=== PATIENT | male | born 1955 | race Caucasian/White ===

== ENCOUNTER 2017-06-22 18:59 | Inpatient (IN) | payer BC ==
[~2017-06-22] VITALS: Ht 172.7 cm; Wt 91.7 kg
[~2017-06-22 18:59] MED LIST: ASPIRIN 32325 MG/TAB PO; ATENOLOL; ATENOLOL50 MG PO; B-1100 MG PO; FOLIC ACID 11 MG/TA1 PO; FOLIC ACID0.4 MG PO; HCTZ12.5TAB PO; IRON TABLETS325 MG PO; LISINOPRIL/HCTZ1 TAB PO; LOVENOX 3030 MG/0.3 SQ; MOBIC15 MG PO; MULTI VITAMINS1 TAB PO; NIFEDICAL XL60 MG PO; PRINIVIL20 MG PO; PROTONIX 40MG T40 MG PO; TENORMIN 5050 MG/TAB PO; TENORMIN100 MG PO; UNABLE; VITAMIN C500 MG PO; ZANTAC 150MG T150 MG PO; ZESTRIL 10MG10 MG PO
[2017-06-22 19:57] LABS: BASO % 0.3 % (0.0-2.0); GRAN # 8.9 (1.4-6.5); GRAN % 77.8 % (42.2-75.2); HEMATOCRIT 46.3 % (42.0-52.0); HEMOGLOBIN 16.8 g/dl (13.5-18.0); LYMPH # 1.8 (1.2-3.4); LYMPH % 15.4 % (20.0-51.0); MEAN CELL VOLUME 95 fl (80.0-100.0); MEAN CORPUSCULAR HEMOGLOBIN 34 pg (27.0-31.0); MEAN CORPUSCULAR HGB CONC 36 g/dl (33.0-37.0); MEAN PLATELET VOLUME 8.6 fl (7.4-10.4); MONO # 0.7 (0.1-0.6); MONO % 6.1 % (1.7-9.3); PLATELET COUNT 180 K/mm3 (130-400); RED BLOOD COUNT 4.88 M/mm3 (4.20-5.60); WHITE BLOOD COUNT 11.5 K/mm3 (4.8-10.8)
[2017-06-22 20:55] LABS: BILIRUBIN,TOTAL 1.1 mg/dL (0.0-1.0); CALCIUM 8.8 mg/dL (8.4-10.2); CREATININE, serum 0.71 mg/dL (0.66-1.25); POTASSIUM 3.5 mmol/L (3.4-5.0); TOTAL PROTEIN 7.6 gm/dL (6.4-8.2)
[2017-06-22 21:11] LABS: PROLACTIN 80.9 ng/mL (3.7-17.9)
[2017-06-22 21:49] LABS: ARTERIAL BLD GAS O2 SATURATION 95.9 % (92-100); ARTERIAL BLD GAS TCO2 CT 17.3; ARTERIAL BLOOD GAS BASE EXCESS -6.9 (-2-2); ARTERIAL BLOOD GAS HCO3 16.5 meq/L (22-26); ARTERIAL BLOOD GAS PO2 92.4 mmHg (80-100); ARTERIAL BLOOD GAS pH 7.38 (7.35-7.45); OXYHEMOGLOBIN 94.6 %
[2017-06-22 21:51] LABS: ALLEN TEST YES; ALLENS TEST RESULT PASS; ATS? YES
[2017-06-22] MEDS ORDERED: PRINIVIL40 MG PO (23:43)
[2017-06-22] MEDS ORDERED: MICROZIDE12.5 MG PO (23:43)
[2017-06-22] MEDS ORDERED: NORVASC 10MG10 MG PO (23:44)
[2017-06-22] MEDS ORDERED: MOBIC15 MG PO (23:44)
[2017-06-23] VITALS (11 sets, daily range): BP systolic 103–121; BP diastolic 58–75; PULSE 59–117; TEMP 97.4–98.8
[2017-06-23 05:16] LABS: ARTERIAL BLD GAS O2 SATURATION 91.8 % (92-100); ARTERIAL BLD GAS TCO2 CT 20.1; ARTERIAL BLOOD GAS BASE EXCESS -3.1 (-2-2); ARTERIAL BLOOD GAS HCO3 19.2 meq/L (22-26); ARTERIAL BLOOD GAS PHT 7.46 C (7.35-7.45); ARTERIAL BLOOD GAS PO2 65.3 mmHg (80-100); ARTERIAL BLOOD GAS PO2T 65.3 (80-100); ARTERIAL BLOOD GAS pH 7.46 (7.35-7.45)
[2017-06-23 05:17] LABS: ALLEN TEST YES; ALLENS TEST RESULT PASS; ATS? YES
[2017-06-23] MEDS ORDERED: B COMPLEX & B121 TAB (06:33)
[2017-06-23 07:35] LABS: BASO % 0.1 % (0.0-2.0); GRAN # 8.2 (1.4-6.5); GRAN % 82.7 % (42.2-75.2); HEMATOCRIT 38.8 % (42.0-52.0); LYMPH # 1.1 (1.2-3.4); MEAN CELL VOLUME 97 fl (80.0-100.0); MEAN CORPUSCULAR HEMOGLOBIN 34 pg (27.0-31.0); MEAN CORPUSCULAR HGB CONC 35 g/dl (33.0-37.0); MEAN PLATELET VOLUME 8.9 fl (7.4-10.4); MONO # 0.6 (0.1-0.6); MONO % 5.6 % (1.7-9.3); PLATELET COUNT 155 K/mm3 (130-400); RED BLOOD COUNT 4.01 M/mm3 (4.20-5.60); WHITE BLOOD COUNT 9.9 K/mm3 (4.8-10.8)
[2017-06-23 07:46] LABS: ADJUSTED CALCIUM 7.8 mg/dL (8.4-10.2); BILIRUBIN,TOTAL 0.9 mg/dL (0.0-1.0); CALCIUM 7.8 mg/dL (8.4-10.2); CREATININE, serum 0.58 mg/dL (0.66-1.25); MAGNESIUM 1.8 mg/dL (1.6-2.3); POTASSIUM 3.1 mmol/L (3.4-5.0); TOTAL PROTEIN 6.4 gm/dL (6.4-8.2)
[2017-06-23 07:49] LABS: HEMOGLOBIN 13.7 g/dl (13.5-18.0)
[2017-06-23 07:54] LABS: PROTHROMBIN TIME 11.7 SECONDS (9.7-12.8)
[2017-06-23 08:09] LABS: PARTIAL THROMBOPLASTIN TIME 26.9 SECONDS (26.0-37.0)
[2017-06-23 13:07] LABS: AMPHETAMINE URINE NEGATIVE; BARBITURATES URINE NEGATIVE; BENZODIAZEPINES URINE NEGATIVE; BUPRENORPHINE URINE NEGATIVE; METHADONE URINE NEGATIVE; OPIATES URINE NEGATIVE; OXYCODONE URINE NEGATIVE; PHENCYCLIDINE URINE NEGATIVE; PROPOXYPHENE URINE NEGATIVE; THC CANNABINOIDS URINE NEGATIVE; TRICYCLIC ANTIDEPRESS URINE NEGATIVE
[2017-06-23 13:24] LABS: COLLECTION METHOD CLEAN CATCH
[2017-06-23 13:34] LABS: MUCOUS Present /lpf; PH 5 (5-8); SQUAMOUS EPITHELIAL None Seen /hpf; URINE APPEARANCE Clear; URINE BACTERIA None Seen /hpf; URINE BILIRUBIN Negative (NEGATIVE); URINE BLOOD Negative (NEGATIVE); URINE COLOR Yellow; URINE GLUCOSE 1+ (NEGATIVE); URINE KETONE 2+ (NEGATIVE); URINE LEUKOCYTE ESTERASE Negative (NEGATIVE); URINE PROTEIN(semi-quant) Negative (NEGATIVE); URINE RBC None Seen /hpf; URINE UROBILINOGEN Negative (NEGATIVE); URINE WBC 0-2 /hpf
[2017-06-23 15:42] LABS: ACETAMINOPHEN < 10 ug/mL (10-30); SALICYLATE < 1.0 mg/dL
[2017-06-23 18:55] LABS: CALCIUM 8.5 mg/dL (8.4-10.2); CREATININE, serum 0.48 mg/dL (0.66-1.25); POTASSIUM 3.7 mmol/L (3.4-5.0)
[2017-06-24] VITALS (11 sets, daily range): BP systolic 114–157; BP diastolic 61–93; PULSE 51–103; TEMP 97.6–98.9
[2017-06-24 07:06] LABS: BASO % 0.3 % (0.0-2.0); GRAN # 4.8 (1.4-6.5); GRAN % 68.7 % (42.2-75.2); HEMOGLOBIN 12.8 g/dl (13.5-18.0); LYMPH # 1.5 (1.2-3.4); LYMPH % 21.3 % (20.0-51.0); MEAN CELL VOLUME 96 fl (80.0-100.0); MEAN CORPUSCULAR HEMOGLOBIN 34 pg (27.0-31.0); MEAN CORPUSCULAR HGB CONC 36 g/dl (33.0-37.0); MEAN PLATELET VOLUME 8.7 fl (7.4-10.4); MONO # 0.6 (0.1-0.6); MONO % 9.1 % (1.7-9.3); PLATELET COUNT 108 K/mm3 (130-400); RED BLOOD COUNT 3.76 M/mm3 (4.20-5.60)
[2017-06-24 07:11] LABS: HEMATOCRIT 36.1 % (42.0-52.0)
[2017-06-24 07:23] LABS: ADJUSTED CALCIUM 8.8 mg/dL (8.4-10.2); ALBUMIN 3.3 gm/dL (3.5-5.0); BILIRUBIN,TOTAL 0.8 mg/dL (0.0-1.0); CALCIUM 8.2 mg/dL (8.4-10.2); CREATININE, serum 0.5 mg/dL (0.66-1.25); MAGNESIUM 1.7 mg/dL (1.6-2.3); POTASSIUM 3.3 mmol/L (3.4-5.0); TOTAL PROTEIN 5.7 gm/dL (6.4-8.2)
[2017-06-25] VITALS (8 sets, daily range): BP systolic 112–161; BP diastolic 57–95; PULSE 51–64; TEMP 97.6–99.1
[2017-06-25 07:32] LABS: BASO % 0.7 % (0.0-2.0); EOS % 0.5 % (0-4.0); GRAN # 2.5 (1.4-6.5); GRAN % 59.4 % (42.2-75.2); HEMOGLOBIN 12.7 g/dl (13.5-18.0); LYMPH # 1.2 (1.2-3.4); LYMPH % 27.7 % (20.0-51.0); MEAN CELL VOLUME 94 fl (80.0-100.0); MEAN CORPUSCULAR HEMOGLOBIN 34 pg (27.0-31.0); MEAN CORPUSCULAR HGB CONC 37 g/dl (33.0-37.0); MEAN PLATELET VOLUME 9.2 fl (7.4-10.4); MONO # 0.5 (0.1-0.6); PLATELET COUNT 99 K/mm3 (130-400); RED BLOOD COUNT 3.69 M/mm3 (4.20-5.60); WHITE BLOOD COUNT 4.2 K/mm3 (4.8-10.8)
[2017-06-25 07:36] LABS: HEMATOCRIT 34.7 % (42.0-52.0)
[2017-06-25 08:06] LABS: CALCIUM 8.2 mg/dL (8.4-10.2); CREATININE, serum 0.48 mg/dL (0.66-1.25); MAGNESIUM 1.6 mg/dL (1.6-2.3); PHOSPHOROUS 2.2 mg/dL (2.5-4.5)
[2017-06-25 08:09] LABS: POTASSIUM 2.8 mmol/L (3.4-5.0)
[2017-06-26] VITALS (7 sets, daily range): BP systolic 121–160; BP diastolic 82–96; PULSE 53–70; TEMP 97.5–98.7
[2017-06-26 06:32] LABS: BASO % 0.4 % (0.0-2.0); EOS % 0.4 % (0-4.0); GRAN # 2.5 (1.4-6.5); GRAN % 50.7 % (42.2-75.2); HEMOGLOBIN 13.5 g/dl (13.5-18.0); LYMPH # 1.7 (1.2-3.4); LYMPH % 34.8 % (20.0-51.0); MEAN CELL VOLUME 94 fl (80.0-100.0); MEAN CORPUSCULAR HEMOGLOBIN 34 pg (27.0-31.0); MEAN CORPUSCULAR HGB CONC 37 g/dl (33.0-37.0); MEAN PLATELET VOLUME 9.5 fl (7.4-10.4); MONO # 0.7 (0.1-0.6); MONO % 13.3 % (1.7-9.3); PLATELET COUNT 120 K/mm3 (130-400); RED BLOOD COUNT 3.93 M/mm3 (4.20-5.60); WHITE BLOOD COUNT 4.9 K/mm3 (4.8-10.8)
[2017-06-26 06:34] LABS: HEMATOCRIT 36.9 % (42.0-52.0)
[2017-06-26 06:43] LABS: CALCIUM 8.2 mg/dL (8.4-10.2); CREATININE, serum 0.52 mg/dL (0.66-1.25); MAGNESIUM 2.1 mg/dL (1.6-2.3); PHOSPHOROUS 2.3 mg/dL (2.5-4.5)
[2017-06-26 06:53] LABS: POTASSIUM 2.8 mmol/L (3.4-5.0)
[2017-06-26] MEDS ORDERED: LEXAPRO 10MG10 MG PO (15:54)
[2017-06-26] MEDS ORDERED: MULTI VITAMINS1 TAB PO (15:55)
[2017-06-26] MEDS ORDERED: THIAMINE 1100 MG/TAB PO (15:56)
[2017-06-26] MEDS ORDERED: FOLIC ACID 11 MG/TA1 PO (15:56)
[2017-06-27 14:21] LABS: ACETONE XXX; ETHANOL ISOPROPHYL XXX
== END 2017-06-26 18:50 | disposition home or self-care (01) | DRG 918 ==
LOC: COL.ER 18:59 → MEDICAL 23:05
PROVIDERS: Emergency Medicine; Internal Medicine; Nurse Practitioner; Nurse Practitioner Family
DX: T51.2X1A Toxic effect of 2-Propanol, accidental (unintentional), initial encounter (principal); E87.2 Acidosis; F33.2 Major depressive disorder, recurrent severe without psychotic features; E87.1 Hypo-osmolality and hyponatremia; F10.229 Alcohol dependence with intoxication, unspecified; Y90.0 Blood alcohol level of less than 20 mg/100 ml; I10 Essential (primary) hypertension; K21.9 Gastro-esophageal reflux disease without esophagitis; F41.1 Generalized anxiety disorder; E87.6 Hypokalemia; D53.9 Nutritional anemia, unspecified
CPT/HCPCS: 99223-AI; 99232-AI; 99239; G0378; J1644; J2765; J3411; J3475; J3480; J7030

== ENCOUNTER → 2017-06-27 | Outpatient (CLI) | payer BC ==
[~2017-06-27] MED LIST changes: +B COMPLEX & B121 TAB; +LEXAPRO 10MG10 MG PO; +MICROZIDE12.5 MG PO; +NORVASC 10MG10 MG PO; +PRINIVIL40 MG PO; +THIAMINE 1100 MG/TAB PO
[2017-06-27 17:16] LABS: CALCIUM 10.3 mg/dL (8.4-10.2); CREATININE, serum 0.8 mg/dL (0.66-1.25); POTASSIUM 3.7 mmol/L (3.4-5.0)
== END ==
LOC: COL.RAD 16:28
PROVIDERS: Internal Medicine
DX: E87.6 Hypokalemia (principal); R93.8 Abnormal findings on diagnostic imaging of other specified body structures

== ENCOUNTER 2017-07-14 19:32 | Emergency (ER) | payer BC ==
[~2017-07-14] VITALS: Ht 177.8 cm; Wt 81.8 kg
[2017-07-14] MEDS ORDERED: DESYREL 100MG100 MG PO (19:45)
[2017-07-14 20:33] LABS: STREP SCREEN NEGATIVE
[2017-07-14 20:37] LABS: INFLUENZA A POSITIVE; INFLUENZA B NEGATIVE
[2017-07-14] MEDS ORDERED: TAMIFLU 75MG75 MG PO (20:52)
[2017-07-14 21:33] VITALS: BP 112/83; PULSE 105; TEMP 99.9
== END 2017-07-14 21:37 | disposition home or self-care (01) ==
LOC: COL.ER 19:32
PROVIDERS: Physician Assistant
DX: T88.6XXA Anaphylactic reaction due to adverse effect of correct drug or medicament properly administered, initial encounter (principal); T39.015A Adverse effect of aspirin, initial encounter; J09.X2 Influenza due to identified novel influenza A virus with other respiratory manifestations
CPT/HCPCS: J1200; J2930; J7030

== ENCOUNTER → 2017-10-30 | Outpatient (CLI) | payer BC ==
[~2017-10-30] MED LIST changes: +DESYREL 100MG100 MG PO; +TAMIFLU 75MG75 MG PO
[2017-10-30 07:37] LABS: BASO % 0.6 % (0.0-2.0); EOS # 0.1 (0.0-0.7); EOS % 1.4 % (0-4.0); GRAN # 4.7 (1.4-6.5); HEMATOCRIT 41.9 % (42.0-52.0); LYMPH # 1.7 (1.2-3.4); LYMPH % 24.4 % (20.0-51.0); MEAN CELL VOLUME 96 fl (80.0-100.0); MEAN CORPUSCULAR HEMOGLOBIN 32 pg (27.0-31.0); MEAN CORPUSCULAR HGB CONC 33 g/dl (33.0-37.0); MEAN PLATELET VOLUME 8.9 fl (7.4-10.4); MONO # 0.5 (0.1-0.6); MONO % 7.3 % (1.7-9.3); PLATELET COUNT 237 K/mm3 (130-400); RED BLOOD COUNT 4.37 M/mm3 (4.20-5.60); REDCELL DISTRIBUTION WIDTH-CV 11.9 % (11.5-14.5)
[2017-10-30 07:39] LABS: COLLECTION METHOD CLEAN CATCH
[2017-10-30 07:44] LABS: PH 5 (5-8); SQUAMOUS EPITHELIAL None Seen /hpf; URINE APPEARANCE Clear; URINE BACTERIA None Seen /hpf; URINE BILIRUBIN Negative (NEGATIVE); URINE BLOOD Negative (NEGATIVE); URINE COLOR Straw; URINE GLUCOSE Negative (NEGATIVE); URINE KETONE Negative (NEGATIVE); URINE LEUKOCYTE ESTERASE Negative (NEGATIVE); URINE NITRATE Negative (NEGATIVE); URINE PROTEIN(semi-quant) Negative (NEGATIVE); URINE RBC 0-2 /hpf; URINE UROBILINOGEN Negative (NEGATIVE)
[2017-10-30 08:48] LABS: ALBUMIN 4.3 gm/dL (3.5-5.0); BILIRUBIN,TOTAL 0.2 mg/dL (0.0-1.0); CALCIUM 9.3 mg/dL (8.4-10.2); CHOLESTEROL RISK RATIO 4.4; CREATININE, serum 0.71 mg/dL (0.66-1.25); MAGNESIUM 1.9 mg/dL (1.6-2.3); PHOSPHOROUS 3.7 mg/dL (2.5-4.5); POTASSIUM 4.3 mmol/L (3.4-5.0); TOTAL PROTEIN 7.7 gm/dL (6.4-8.2)
[2017-10-30 09:19] LABS: TSH w REFLEX 0.968 uIU/mL (0.465-4.680)
[2017-10-30 10:02] LABS: PSA-TOTAL 1.47 ng/mL (0-4)
[2017-10-31 00:10] LABS: FOLATE (FOLIC ACID) 14.1 ng/mL (7.0-31.4)
== END ==
LOC: COL.LAB 07:02
PROVIDERS: Internal Medicine
DX: Z00.00 Encounter for general adult medical examination without abnormal findings (principal); Z12.5 Encounter for screening for malignant neoplasm of prostate; E87.1 Hypo-osmolality and hyponatremia; D62 Acute posthemorrhagic anemia; R53.83 Other fatigue
CPT/HCPCS: G0103

== ENCOUNTER 2018-01-29 12:54 | Inpatient (IN) | payer BC ==
[~2018-01-29] VITALS: Ht 172.7 cm; Wt 75.8 kg
[2018-02-26] VITALS (13 sets, daily range): BP systolic 95–136; BP diastolic 62–87; PULSE 42–68; TEMP 97.2–98.5
[2018-02-26 06:17] LABS: CALCIUM 9.3 mg/dL (8.4-10.2); CREATININE, serum 0.81 mg/dL (0.66-1.25); POTASSIUM 4.5 mmol/L (3.4-5.0)
[2018-02-27 03:20] VITALS: BP 132/81; PULSE 61; TEMP 98.3
[2018-02-27 07:10] LABS: HEMOGLOBIN 12.5 g/dl (13.5-18.0)
[2018-02-27 07:17] LABS: HEMATOCRIT 35.7 % (42.0-52.0)
[2018-02-27 12:05] VITALS: BP 136/67; PULSE 68; TEMP 98.1
[2018-02-27 15:51] VITALS: BP 140/71; PULSE 5; PULSE 55; TEMP 98
[2018-02-27 20:21] VITALS: BP 88/56; BP 98/56; PULSE 65; TEMP 98.7
[2018-02-28 00:04] VITALS: BP 92/55; PULSE 56; TEMP 98.5
[2018-02-28 03:22] VITALS: BP 102/66; PULSE 65; TEMP 98.1
[2018-02-28] MEDS ORDERED: XARELTO10 MG PO (07:11)
[2018-02-28] MEDS ORDERED: ROXICODONE 55 MG/TAB PO (07:12)
[2018-02-28] MEDS ORDERED: NORCO 325 MG-7.1 TAB PO (07:12)
[2018-02-28] MEDS ORDERED: TYLENOL 500MG500 MG PO (07:13)
[2018-02-28] MEDS ORDERED: COLACE 100100 MG/CAP PO (07:13)
[2018-02-28 07:21] LABS: HEMOGLOBIN 11.4 g/dl (13.5-18.0)
[2018-02-28 07:22] LABS: HEMATOCRIT 32.7 % (42.0-52.0)
[2018-02-28 08:14] VITALS: BP 89/51; PULSE 63; TEMP 98.3
[2018-02-28 12:02] VITALS: BP 97/45; PULSE 60; TEMP 98.1
== END 2018-02-28 15:34 | disposition home or self-care (01) | DRG 470 ==
LOC: JCC 02-26 05:25
PROVIDERS: Orthopaedic Surgery
PROC: 0SR90JZ Replacement of Right Hip Joint with Synthetic Substitute, Open Approach (ICD-10-PCS; principal; 2018-02-26 07:30)
DX: M16.11 Unilateral primary osteoarthritis, right hip (principal); I10 Essential (primary) hypertension
CPT/HCPCS: A4314; A9284; C1713; C1776; J0690; J2250; J2274; J2310; J2704; J3010; J7120

== ENCOUNTER → 2018-01-30 | Outpatient (CLI) | payer BC | LOC: COL.LAB 15:13 | DX: Z01.812 Encounter for preprocedural laboratory examination (principal) ==

== ENCOUNTER 2018-05-14 19:54 | Inpatient (IN) | payer BC ==
[~2018-05-14] VITALS: Ht 172.7 cm; Wt 83.7 kg
[2018-05-14] VITALS (91 sets, daily range): BP systolic 172–177; BP diastolic 107–110; PULSE 81–85; TEMP 97.8; O2SAT 91–98
[~2018-05-14 19:54] MED LIST changes: +COLACE 100100 MG/CAP PO; +NORCO 325 MG-7.1 TAB PO; +ROXICODONE 55 MG/TAB PO; +TYLENOL 500MG500 MG PO; +XARELTO10 MG PO
[2018-05-14 20:25] LABS: BASO % 0.2 % (0.0-2.0); EOS % 0.1 % (0-4.0); GRAN # 7.1 (1.4-6.5); GRAN % 74.8 % (42.2-75.2); HEMOGLOBIN 13.3 g/dl (13.5-18.0); LYMPH # 1.4 (1.2-3.4); LYMPH % 14.9 % (20.0-51.0); MEAN CELL VOLUME 89 fl (80.0-100.0); MEAN CORPUSCULAR HEMOGLOBIN 33 pg (27.0-31.0); MEAN CORPUSCULAR HGB CONC 38 g/dl (33.0-37.0); MEAN PLATELET VOLUME 9.2 fl (7.4-10.4); MONO # 0.9 (0.1-0.6); MONO % 9.4 % (1.7-9.3); PLATELET COUNT 172 K/mm3 (130-400); REDCELL DISTRIBUTION WIDTH-CV 11.9 % (11.5-14.5)
[2018-05-14 20:27] LABS: HEMATOCRIT 35.5 % (42.0-52.0)
[2018-05-14 20:37] LABS: ALANINE AMINOTRANSFERASE 60 U/L (21-72); ALBUMIN 4.1 gm/dL (3.5-5.0); ALCOHOL(ethanol),MEDICAL 43 mg/dL; ALKALINE PHOSPHATASE 76 U/L (50-136); ANION GAP 17 mmol/L (7-16); AST,SGOT 78 U/L (15-37); BILIRUBIN,TOTAL 1.7 mg/dL (0.0-1.0); BLOOD UREA NITROGEN 3 mg/dL (9-20); CALCIUM 8.4 mg/dL (8.4-10.2); CARBON DIOXIDE 21 mmol/L (22-30); CREATININE, serum 0.44 mg/dL (0.66-1.25); GLUCOSE 87 mg/dL (74-106); PHOSPHOROUS 2.7 mg/dL (2.5-4.5); POTASSIUM 3.6 mmol/L (3.4-5.0); TOTAL PROTEIN 6.7 gm/dL (6.4-8.2)
[2018-05-14 20:47] LABS: SODIUM 117 mmol/L (137-145)
[2018-05-14 20:48] LABS: ACETAMINOPHEN < 10 ug/mL (10-30); CHLORIDE 79 mmol/L (98-107); MAGNESIUM 0.9 mg/dL (1.6-2.3); SALICYLATE < 1.0 mg/dL; TROPONIN-I < 0.012 ng/mL (0.000-0.034)
[2018-05-15] VITALS (1253 sets, daily range): BP systolic 126–170; BP diastolic 94–111; PULSE 58–93; TEMP 97.6–99.3; O2SAT 60–100
[2018-05-15 00:12] LABS: CALCIUM 7.9 mg/dL (8.4-10.2); CREATININE, serum 0.45 mg/dL (0.66-1.25); MAGNESIUM 1.1 mg/dL (1.6-2.3); POTASSIUM 3.7 mmol/L (3.4-5.0)
[2018-05-15 00:17] LABS: PROTHROMBIN TIME 11.5 SECONDS (9.7-12.8)
[2018-05-15 00:20] LABS: PARTIAL THROMBOPLASTIN TIME 26.8 SECONDS (26.0-37.0)
[2018-05-15 00:41] LABS: PROLACTIN 12.5 ng/mL (3.7-17.9)
[2018-05-15 01:05] LABS: ARTERIAL BLD GAS TCO2 CT 19.8; ARTERIAL BLOOD GAS BASE EXCESS -1.7 (-2-2); ARTERIAL BLOOD GAS HCO3 19.1 meq/L (22-26); ARTERIAL BLOOD GAS pH 7.53 (7.35-7.45)
[2018-05-15 01:06] LABS: ARTERIAL BLOOD GAS PCO2 23.2 mmHg (35-45)
[2018-05-15 05:50] LABS: ALBUMIN 3.2 gm/dL (3.5-5.0); BILIRUBIN,TOTAL 1.6 mg/dL (0.0-1.0); CALCIUM 7.5 mg/dL (8.4-10.2); CREATININE, serum 0.42 mg/dL (0.66-1.25); POTASSIUM 3.6 mmol/L (3.4-5.0); TOTAL PROTEIN 5.7 gm/dL (6.4-8.2)
[2018-05-15 06:00] LABS: BASO % 0.1 % (0.0-2.0); GRAN # 5.3 (1.4-6.5); GRAN % 77.5 % (42.2-75.2); HEMOGLOBIN 13.7 g/dl (13.5-18.0); LYMPH # 0.8 (1.2-3.4); LYMPH % 11.2 % (20.0-51.0); MEAN CELL VOLUME 88 fl (80.0-100.0); MEAN CORPUSCULAR HEMOGLOBIN 33 pg (27.0-31.0); MEAN CORPUSCULAR HGB CONC 37 g/dl (33.0-37.0); MEAN PLATELET VOLUME 8.5 fl (7.4-10.4); MONO # 0.8 (0.1-0.6); MONO % 10.9 % (1.7-9.3); PLATELET COUNT 124 K/mm3 (130-400); RED BLOOD COUNT 4.17 M/mm3 (4.20-5.60); REDCELL DISTRIBUTION WIDTH-CV 11.9 % (11.5-14.5)
[2018-05-15 06:01] LABS: HEMATOCRIT 36.8 % (42.0-52.0)
[2018-05-15 08:10] LABS: CALCIUM 8.6 mg/dL (8.4-10.2); CREATININE, serum 0.46 mg/dL (0.66-1.25)
[2018-05-15 09:17] LABS: COLLECTION METHOD CLEAN CATCH
[2018-05-15 09:20] LABS: CALCIUM 8.6 mg/dL (8.4-10.2); CREATININE, serum 0.47 mg/dL (0.66-1.25); POTASSIUM 4.1 mmol/L (3.4-5.0)
[2018-05-15 09:22] LABS: MUCOUS Present /lpf; PH 7 (5-8); SQUAMOUS EPITHELIAL None Seen /hpf; URINE APPEARANCE Clear; URINE BACTERIA Rare /hpf; URINE BILIRUBIN Negative (NEGATIVE); URINE BLOOD Negative (NEGATIVE); URINE COLOR Straw; URINE GLUCOSE Negative (NEGATIVE); URINE KETONE 1+ (NEGATIVE); URINE LEUKOCYTE ESTERASE Negative (NEGATIVE); URINE NITRATE Negative (NEGATIVE); URINE PROTEIN(semi-quant) Negative (NEGATIVE); URINE RBC 0-2 /hpf; URINE UROBILINOGEN Negative (NEGATIVE); URINE WBC 0-2 /hpf
[2018-05-15 11:59] LABS: CALCIUM 8.4 mg/dL (8.4-10.2); CREATININE, serum 0.49 mg/dL (0.66-1.25); POTASSIUM 4.1 mmol/L (3.4-5.0)
[2018-05-15 13:17] LABS: CALCIUM 8.3 mg/dL (8.4-10.2); CREATININE, serum 0.45 mg/dL (0.66-1.25)
[2018-05-15 17:23] LABS: CALCIUM 8.6 mg/dL (8.4-10.2); CREATININE, serum 0.48 mg/dL (0.66-1.25); POTASSIUM 3.7 mmol/L (3.4-5.0)
[2018-05-15 20:38] LABS: CALCIUM 8.3 mg/dL (8.4-10.2); CREATININE, serum 0.47 mg/dL (0.66-1.25); POTASSIUM 3.3 mmol/L (3.4-5.0)
[2018-05-16] VITALS (955 sets, daily range): BP systolic 125–161; BP diastolic 84–112; PULSE 55–58; TEMP 97.1–97.8; O2SAT 59–100
[2018-05-16 01:30] LABS: CALCIUM 7.9 mg/dL (8.4-10.2); CREATININE, serum 0.51 mg/dL (0.66-1.25); POTASSIUM 3.4 mmol/L (3.4-5.0)
[2018-05-16 06:06] LABS: BASO % 0.2 % (0.0-2.0); EOS % 0.7 % (0-4.0); GRAN # 3.8 (1.4-6.5); GRAN % 69.6 % (42.2-75.2); HEMATOCRIT 38.3 % (42.0-52.0); LYMPH % 17.2 % (20.0-51.0); MEAN CELL VOLUME 91 fl (80.0-100.0); MEAN CORPUSCULAR HEMOGLOBIN 33 pg (27.0-31.0); MEAN CORPUSCULAR HGB CONC 37 g/dl (33.0-37.0); MEAN PLATELET VOLUME 8.9 fl (7.4-10.4); MONO # 0.7 (0.1-0.6); MONO % 11.8 % (1.7-9.3); PLATELET COUNT 100 K/mm3 (130-400); RED BLOOD COUNT 4.23 M/mm3 (4.20-5.60)
[2018-05-16 06:20] LABS: CALCIUM 8.4 mg/dL (8.4-10.2); CREATININE, serum 0.49 mg/dL (0.66-1.25); MAGNESIUM 1.6 mg/dL (1.6-2.3); POTASSIUM 3.1 mmol/L (3.4-5.0)
[2018-05-16 13:26] LABS: CALCIUM 8.6 mg/dL (8.4-10.2); CREATININE, serum 0.49 mg/dL (0.66-1.25); POTASSIUM 3.7 mmol/L (3.4-5.0)
[2018-05-16 19:23] LABS: CALCIUM 8.8 mg/dL (8.4-10.2); CREATININE, serum 0.58 mg/dL (0.66-1.25)
[2018-05-17] VITALS (865 sets, daily range): BP systolic 102–156; BP diastolic 69–107; PULSE 46–94; TEMP 97.3–98.3; O2SAT 53–100
[2018-05-17 06:16] LABS: CALCIUM 8.9 mg/dL (8.4-10.2); CREATININE, serum 0.57 mg/dL (0.66-1.25); POTASSIUM 3.7 mmol/L (3.4-5.0)
[2018-05-17 14:05] LABS: CALCIUM 9.1 mg/dL (8.4-10.2); CREATININE, serum 0.66 mg/dL (0.66-1.25); POTASSIUM 3.9 mmol/L (3.4-5.0)
[2018-05-18] VITALS (209 sets, daily range): BP systolic 112–152; BP diastolic 74–107; PULSE 58–89; TEMP 98.3–98.4; O2SAT 78–99
[2018-05-18 06:17] LABS: CALCIUM 8.9 mg/dL (8.4-10.2); CREATININE, serum 0.62 mg/dL (0.66-1.25)
[2018-05-18] MEDS ORDERED: FOLIC ACID 11 MG/TA1 PO (14:02)
[2018-05-18] MEDS ORDERED: NATURE'S BLEND100 M2 PO (14:02)
[2018-05-18] MEDS ORDERED: DUO-KAPS1 CAP PO (14:03)
== END 2018-05-18 16:01 | disposition home or self-care (01) | DRG 896 ==
LOC: COL.ER 19:54 → ICU 21:55 → EU 05-18 12:08 → ICU 05-18 16:01
PROVIDERS: Emergency Medicine; Family Medicine; Internal Medicine; Nurse Practitioner; Physician Assistant
DX: F10.221 Alcohol dependence with intoxication delirium (principal); G92 Toxic encephalopathy; E87.1 Hypo-osmolality and hyponatremia; E87.2 Acidosis; Y90.2 Blood alcohol level of 40-59 mg/100 ml; I10 Essential (primary) hypertension; E87.8 Other disorders of electrolyte and fluid balance, not elsewhere classified; E83.42 Hypomagnesemia; F32.9 Major depressive disorder, single episode, unspecified
CPT/HCPCS: 99222-AI; 99232-AI; 99233-AI; 99239; J1650; J2060; J2405; J2597; J3475; J3480; J7030; J7070; J7131

== ENCOUNTER 2018-06-01 09:20 | Inpatient (IN) | payer BC ==
[~2018-06-01] VITALS: Ht 172.7 cm; Wt 92.3 kg
[~2018-06-01 09:20] MED LIST changes: +DUO-KAPS1 CAP PO; +NATURE'S BLEND100 M2 PO
[2018-07-04] VITALS (12 sets, daily range): BP systolic 95–134; BP diastolic 55–79; PULSE 51–888; TEMP 97.9–985.1
[2018-07-04] MEDS ORDERED: B COMPLEX #11 TAB PO (06:07)
[2018-07-05 05:02] VITALS: BP 110/74; PULSE 62; TEMP 98.2
[2018-07-05 06:13] LABS: HEMOGLOBIN 12.3 g/dl (13.5-18.0)
[2018-07-05 06:22] LABS: HEMATOCRIT 35.3 % (42.0-52.0)
[2018-07-05] MEDS ORDERED: NORCO 325 MG-7.1 TAB PO (07:13)
[2018-07-05] MEDS ORDERED: ROXICODONE 55 MG/TAB PO (07:13)
[2018-07-05 08:18] VITALS: BP 94/63; PULSE 82; TEMP 98.7
[2018-07-05 12:25] VITALS: BP 106/70; PULSE 63; TEMP 97.1
== END 2018-07-05 14:50 | disposition home or self-care (01) | DRG 483 ==
LOC: JCC 07-04 05:40
PROVIDERS: Orthopaedic Surgery
PROC: 0RRJ00Z Replacement of Right Shoulder Joint with Reverse Ball and Socket Synthetic Substitute, Open Approach (ICD-10-PCS; principal; 2018-07-04 07:30)
DX: M19.211 Secondary osteoarthritis, right shoulder (principal); I10 Essential (primary) hypertension
CPT/HCPCS: A9284; C1713; C1776; J0690; J1100; J2250; J2405; J2704; J2795; J3010; J7120

== ENCOUNTER 2019-03-20 01:26 | Inpatient (IN) | payer SELFPAY ==
[2019-03-20] VITALS (8 sets, daily range): BP systolic 138–166; BP diastolic 85–102; PULSE 65–91; TEMP 97.6–98.6
[~2019-03-20] VITALS: Ht 172.7 cm; Wt 70.4 kg
[~2019-03-20 01:26] MED LIST changes: +B COMPLEX #11 TAB PO
[2019-03-20 03:44] LABS: BASO % 0.7 % (0.0-2.0); GRAN # 4.1 (1.4-6.5); GRAN % 70.9 % (42.2-75.2); HEMATOCRIT 40.1 % (42.0-52.0); HEMOGLOBIN 14.2 g/dl (13.5-18.0); LYMPH # 0.8 (1.2-3.4); LYMPH % 14.2 % (20.0-51.0); MEAN CELL VOLUME 95 fl (80.0-100.0); MEAN CORPUSCULAR HEMOGLOBIN 34 pg (27.0-31.0); MEAN CORPUSCULAR HGB CONC 35 g/dl (33.0-37.0); MEAN PLATELET VOLUME 9.1 fl (7.4-10.4); MONO # 0.8 (0.1-0.6); MONO % 13.5 % (1.7-9.3); PLATELET COUNT 96 K/mm3 (130-400); RED BLOOD COUNT 4.22 M/mm3 (4.20-5.60); REDCELL DISTRIBUTION WIDTH-CV 13.8 % (11.5-14.5)
[2019-03-20 03:57] LABS: ALANINE AMINOTRANSFERASE 208 U/L (21-72); ALBUMIN 4.5 gm/dL (3.5-5.0); ALCOHOL(ethanol),MEDICAL < 10 mg/dL; ALKALINE PHOSPHATASE 80 U/L (50-136); ANION GAP 19 mmol/L (7-16); AST,SGOT 210 U/L (15-37); BLOOD UREA NITROGEN 11 mg/dL (9-20); C-REACTIVE PROTEIN < 0.5 mg/dL (0.0-0.9); CALCIUM 9.2 mg/dL (8.4-10.2); CARBON DIOXIDE 21 mmol/L (22-30); CHLORIDE 94 mmol/L (98-107); CREATININE, serum 0.58 (0.66-1.25); GLUCOSE 114 mg/dL (74-106); LIPASE 202 U/L (23-300); POTASSIUM 3.7 mmol/L (3.4-5.0); SODIUM 134 mmol/L (137-145); TOTAL PROTEIN 7.2 gm/dL (6.4-8.2)
[2019-03-20 08:18] LABS: COLLECTION METHOD CLEAN CATCH
[2019-03-20 08:24] LABS: MUCOUS Present /lpf; PH 8 (5-8); SQUAMOUS EPITHELIAL None Seen /hpf; URINE APPEARANCE Cloudy; URINE BACTERIA None Seen /hpf; URINE BILIRUBIN Negative (NEGATIVE); URINE BLOOD Negative (NEGATIVE); URINE COLOR Amber; URINE GLUCOSE Negative (NEGATIVE); URINE KETONE 2+ (NEGATIVE); URINE LEUKOCYTE ESTERASE Negative (NEGATIVE); URINE NITRATE Negative (NEGATIVE); URINE PROTEIN(semi-quant) 1+ (NEGATIVE); URINE RBC 0-2 /hpf; URINE UROBILINOGEN >=4.0 mg/dL (NEGATIVE)
--- NOTE | 2019-03-20 09:30 | NUR ---
Pt arrived into 313 at this time. Pt is A/O x3, he does have long pauses between responses staring off into the room. Pt has occasional mild tremors present, clubbing visualized to bilateral hands. He does report nausea. Pt able to verbalize reasoning for being here. He reports pain to "stomach", he reports this is d/t vomiting. POC discussed with patient as well as [facility] protocol. Seizure precautions in place, bed alarm in place. Will continue to monitor.
[2019-03-20 12:26] LABS: PROTHROMBIN TIME 11.6 SECONDS (9.7-12.8)
[2019-03-20 15:24] LABS: TRICYCLIC ANTIDEPRESS URINE NEGATIVE
--- NOTE | 2019-03-20 16:06 | NUR ---
1500-SW met with patient to discuss discharge planning. Patient lives at home with his . Patient's PCP is Dr Vela and he obtains prescriptions from [facility]. Patient denies difficulty obtaining medications. SW and patient unable to continue conversation due to patient needing to use the restroom. SW will follow up at a later time. 1600-SW, then, attempted to meet with patient. Patient asleep. SW will follow up in the morning.
--- NOTE | 2019-03-20 17:50 | NUR ---
Pt ate very little of dinner reporting it was "too much food". Denies nausea or pain at this time. No emesis through the day. Pt has been resting through the day. No hallucinations present. IVF infusing without complications, fall precautions in place.
--- NOTE | 2019-03-20 23:04 | NUR ---
Q2H FVS OBTAINED WITH COMPLETION OF ALCOHOL DETOX SCREEN ORDERED. bp OBTAINED @ 2220 160/110 IN LEFT ARM. HAS HX OF HTN AND ACCORDING TO MED REC TAKES ORAL MEDICATION BUT HAS NOT TAKEN THEM OVER ONE MONTH. ATTITUIDE VICTORIA AND COOPERATIVE. REPORTS MILD ANXIETY. FINE TREMORS ONLY WHEN ARMS EXTENDED. NO REPORTED NAUSEA. NO REPORTED OR OBSERVED HALLUCINATIONS OR DELUSIONS. YOLIE GARY NOTIFIED. SEE CHART FOR ORDERS RECEIVED.
[2019-03-21] VITALS (15 sets, daily range): BP systolic 99–162; BP diastolic 62–94; PULSE 72–108; TEMP 94.6–98.9
[2019-03-21 06:50] LABS: BASO % 0.5 % (0.0-2.0); EOS % 0.5 % (0-4.0); GRAN # 2.2 (1.4-6.5); GRAN % 54.6 % (42.2-75.2); HEMATOCRIT 38.6 % (42.0-52.0); HEMOGLOBIN 13.3 g/dl (13.5-18.0); LYMPH # 1.3 (1.2-3.4); LYMPH % 31.7 % (20.0-51.0); MEAN CELL VOLUME 98 fl (80.0-100.0); MEAN CORPUSCULAR HEMOGLOBIN 34 pg (27.0-31.0); MEAN CORPUSCULAR HGB CONC 35 g/dl (33.0-37.0); MEAN PLATELET VOLUME 10.2 fl (7.4-10.4); MONO # 0.5 (0.1-0.6); MONO % 12.5 % (1.7-9.3); PLATELET COUNT 86 K/mm3 (130-400); RED BLOOD COUNT 3.96 M/mm3 (4.20-5.60); REDCELL DISTRIBUTION WIDTH-CV 14.3 % (11.5-14.5)
[2019-03-21 07:10] LABS: ALBUMIN 3.8 gm/dL (3.5-5.0); BILIRUBIN,TOTAL 1.2 mg/dL (0.0-1.0); CALCIUM 8.8 mg/dL (8.4-10.2); CREATININE, serum 0.51 (0.66-1.25); POTASSIUM 3.4 mmol/L (3.4-5.0); TOTAL PROTEIN 6.4 gm/dL (6.4-8.2)
--- NOTE | 2019-03-21 09:37 | NUR ---
Pt resting in bed, has some anxeity currently, asked if there were a way to "speed things up" educated Pt on process, shift assessments complete, left Pt call light in reach, bed in lowest position.
--- NOTE | 2019-03-21 10:03 | NUR ---
SW attended clinical rounds. Patient is usure if he is tried or if he is feeling the effects of the ativan. Patient reports he would like to get up and walk. Hospitalist order PT. CARLOS will follow up at a later time to discuss alcohol treatment options.
--- NOTE | 2019-03-21 15:37 | NUR ---
SW attempted to meet with patient to discuss alcohol treatment. Patient's friends were present. Due to the medication patient is on, he is unable to stay awake. SW will follow up at a later time.
--- NOTE | 2019-03-21 17:56 | NUR ---
Pt resting today, currently scoring 3 on the detox score, no noticeable tremors, no nausea / vomiting today, Pt still not eating well. Pt has had no C/O pain, Pt was able to shower this afternoon with minimal assistance, still unsteady on his feet, Vs have been stable and in the more normal range this afternoon, anxiety has been minimal.
--- NOTE | 2019-03-21 19:12 | NUR ---
Report given to BECKY Meyer.
--- NOTE | 2019-03-21 20:07 | NUR ---
patient laying in bed crying. states "I feel terrible, my mind is just racing and i cant make it stop". Mild tremors noted. skin warm and dry. reports mild nausea. denies visual or audible hallucinations. suicide assessment completed. Patient denies being suicide or wishing to harm self.
[2019-03-22] VITALS (11 sets, daily range): BP systolic 83–152; BP diastolic 46–115; PULSE 66–125; TEMP 97.4–98.8
[2019-03-22 07:24] LABS: BASO % 0.5 % (0.0-2.0); EOS % 0.8 % (0-4.0); GRAN # 1.9 (1.4-6.5); GRAN % 52.3 % (42.2-75.2); HEMATOCRIT 39.2 % (42.0-52.0); HEMOGLOBIN 13.6 g/dl (13.5-18.0); LYMPH # 1.2 (1.2-3.4); LYMPH % 32.9 % (20.0-51.0); MEAN CELL VOLUME 97 fl (80.0-100.0); MEAN CORPUSCULAR HEMOGLOBIN 34 pg (27.0-31.0); MEAN CORPUSCULAR HGB CONC 35 g/dl (33.0-37.0); MEAN PLATELET VOLUME 10.2 fl (7.4-10.4); MONO # 0.5 (0.1-0.6); PLATELET COUNT 92 K/mm3 (130-400); RED BLOOD COUNT 4.05 M/mm3 (4.20-5.60); REDCELL DISTRIBUTION WIDTH-CV 14.4 % (11.5-14.5)
--- NOTE | 2019-03-22 07:29 | NUR ---
SEE DETOX ASSESSMENTS AND FVS CHARTED ORDERED. SEE EMAR FOR FOR ATIVAN ADMINISTERED FOR DETOX SCORING. PATIENT RPORTING ANXIETY AND STATES "mY MIND IS JUST RACING I CANT MAKE IT STOP". PATIENT RESPONDED TO TREATMENT PROVIDED THROUGH THE NIGHT. REPORT GIVEN TO MELBA PENA.
--- NOTE | 2019-03-22 07:29 | NUR ---
Report received from BECKY Meyer.
[2019-03-22 07:39] LABS: CALCIUM 9.5 mg/dL (8.4-10.2); CREATININE, serum 0.54 (0.66-1.25); MAGNESIUM 1.6 mg/dL (1.6-2.3); POTASSIUM 3.6 mmol/L (3.4-5.0); TOTAL PROTEIN 6.7 gm/dL (6.4-8.2)
--- NOTE | 2019-03-22 08:16 | NUR ---
Pt napping in bed upon entry, no C/O pain at this time, shift assessments complete, left Pt call light in reach, bed in lowest position, bed alarm on.
--- NOTE | 2019-03-22 16:17 | NUR ---
SW met with the patient's . Patient was sleeping and hard to rouse. The patient's reports patient has has services with [facility] in the past for counseling. Patient's reports also has been to [facility] in [place]. However, due to insurance, patient could not have a prolonged stay. director of volunteer services will continue to follow to ensure safe discharge.
--- NOTE | 2019-03-22 19:46 | NUR ---
Pt has been sleeping on and off during the day, no C/O pain throughout, detox scores have been up and down today. HR has run high >140 while ambulating or sitting up, Pt has been asymptomatic when checked, VS have otherwise remained stable.
[2019-03-23 00:23] VITALS: BP 137/89; PULSE 82; TEMP 98.2
[2019-03-23 02:23] VITALS: BP 133/76; PULSE 89; TEMP 97.8
[2019-03-23 03:58] VITALS: BP 149/93; PULSE 102; TEMP 98.4
[2019-03-23 05:59] LABS: BASO % 0.7 % (0.0-2.0); EOS % 0.7 % (0-4.0); GRAN # 1.3 (1.4-6.5); GRAN % 44.9 % (42.2-75.2); HEMATOCRIT 37.3 % (42.0-52.0); HEMOGLOBIN 12.9 g/dl (13.5-18.0); LYMPH # 1.1 (1.2-3.4); LYMPH % 37.8 % (20.0-51.0); MEAN CELL VOLUME 99 fl (80.0-100.0); MEAN CORPUSCULAR HEMOGLOBIN 34 pg (27.0-31.0); MEAN CORPUSCULAR HGB CONC 35 g/dl (33.0-37.0); MEAN PLATELET VOLUME 10.3 fl (7.4-10.4); MONO # 0.4 (0.1-0.6); MONO % 15.5 % (1.7-9.3); PLATELET COUNT 94 K/mm3 (130-400); RED BLOOD COUNT 3.78 M/mm3 (4.20-5.60); REDCELL DISTRIBUTION WIDTH-CV 14.5 % (11.5-14.5)
[2019-03-23 06:08] VITALS: BP 128/84; PULSE 81; TEMP 98.7
[2019-03-23 06:09] LABS: CALCIUM 9.2 mg/dL (8.4-10.2); CREATININE, serum 0.63 (0.66-1.25); MAGNESIUM 1.6 mg/dL (1.6-2.3); POTASSIUM 3.4 mmol/L (3.4-5.0)
[2019-03-23 07:58] VITALS: BP 129/88; PULSE 103; TEMP 98.1
--- NOTE | 2019-03-23 08:03 | NUR ---
Pt assessment complete. Pt laying in bed upon entry. He is A/O x3. His breathing is even and unlabored on RA. Pt denies SOB. Reports occasional dizziness and GATES. Pt encouraged to drink fluids and call for assistance when ambulating. Pt ate breakfast without issues today, no N/V. POC discussed with patient who verbalizes understanding. No needs at this time. Call light within reach.
[2019-03-23 10:00] VITALS: BP 134/90; PULSE 90; TEMP 98.4
[2019-03-23] MEDS ORDERED: TENORMIN 2525 MG/TAB PO (11:47)
[2019-03-23] MEDS ORDERED: DUO-KAPS1 CAP PO (11:48)
[2019-03-23] MEDS ORDERED: FOLIC ACID 11 MG/TA1 PO (11:49)
[2019-03-23] MEDS ORDERED: THIAMINE 1100 MG/TAB PO (11:49)
[2019-03-23] MEDS ORDERED: LEXAPRO20 MG PO (11:50)
[2019-03-23] MEDS ORDERED: DESYREL DIVIDO150 M1 PO (11:51)
[2019-03-23] MEDS ORDERED: ATARAX 25MG25 MG/TAB PO (11:51)
--- NOTE | 2019-03-23 12:44 | NUR ---
Discharge paperwork and instructions reviewed with patient, all questions answered at this time. IV to LFA dc'd catheter tip intact. Pt wheeled out at this time.
== END 2019-03-23 12:45 | disposition home or self-care (01) | DRG 897 ==
LOC: COL.ER 01:26 → MEDICAL 05:33
PROVIDERS: Nurse Practitioner Family; Physician Assistant; ADMIT Internal Medicine
PROC: HZ2ZZZZ Detoxification Services for Substance Abuse Treatment (ICD-10-PCS; principal; 2019-03-20)
DX: F10.239 Alcohol dependence with withdrawal, unspecified (principal); E87.1 Hypo-osmolality and hyponatremia; E87.2 Acidosis; E44.0 Moderate protein-calorie malnutrition; R94.5 Abnormal results of liver function studies; D69.6 Thrombocytopenia, unspecified; E87.8 Other disorders of electrolyte and fluid balance, not elsewhere classified; I10 Essential (primary) hypertension; R00.0 Tachycardia, unspecified; F32.9 Major depressive disorder, single episode, unspecified; F41.9 Anxiety disorder, unspecified; G47.00 Insomnia, unspecified; K21.9 Gastro-esophageal reflux disease without esophagitis; R53.81 Other malaise; M19.90 Unspecified osteoarthritis, unspecified site; Y90.0 Blood alcohol level of less than 20 mg/100 ml; G89.29 Other chronic pain; F41.0 Panic disorder [episodic paroxysmal anxiety]; F10.24 Alcohol dependence with alcohol-induced mood disorder; Z68.30 Body mass index [BMI] 30.0-30.9, adult
CPT/HCPCS: 99222-AI; 99231-AI; 99233-AI; 99239; J0360; J1650; J2060; J2405; J3360; J7030

== ENCOUNTER → 2019-04-23 | Outpatient (CLI) | payer BC ==
[~2019-04-23] MED LIST changes: +ATARAX 25MG25 MG/TAB PO; +DESYREL DIVIDO150 M1 PO; +LEXAPRO20 MG PO; +TENORMIN 2525 MG/TAB PO
== END ==
LOC: BHSO 13:24
DX: F10.20 Alcohol dependence, uncomplicated (principal)

== ENCOUNTER → 2019-05-22 | Outpatient (CLI) | payer BC | LOC: BHSO 11:40 | DX: F10.20 Alcohol dependence, uncomplicated (principal) | CPT/HCPCS: G0463 ==

== ENCOUNTER → 2019-08-21 | Outpatient (CLI) | payer BC | LOC: BHSO 11:43 | DX: F41.1 Generalized anxiety disorder (principal) | CPT/HCPCS: G0463 ==

== ENCOUNTER → 2020-02-11 | Outpatient (CLI) | payer BC | LOC: BHSO 08:01 | DX: F41.1 Generalized anxiety disorder (principal) | CPT/HCPCS: G0463 ==

== ENCOUNTER 2020-11-30 07:22 | Day surgery (SDC) | payer MEDICARE, BC ==
[~2020-11-30] VITALS: Ht 172.7 cm; Wt 76.9 kg
[2020-11-30] VITALS (8 sets, daily range): BP systolic 102–141; BP diastolic 62–99; PULSE 65–92; TEMP 98.6–98.7
[2020-11-30] MEDS ORDERED: DESYREL 50MG50 MG PO (08:19)
[2020-11-30] MEDS ORDERED: FOLIC ACID 11 MG/TA1 PO (08:19)
[2020-11-30] MEDS ORDERED: ONE-A-DAY ESSE1 EACH PO (08:20)
[2020-11-30] MEDS ORDERED: IRON TABLETS325 MG PO (08:20)
[2020-11-30] MEDS ORDERED: GARLIC PO (08:22)
[2020-11-30] MEDS ORDERED: TURMERIC PO (08:24)
[2020-11-30] MEDS ORDERED: [UNRECOGNIZED DRUG - OTHER] PO (08:25)
--- NOTE | 2020-11-30 14:00 | NUR ---
PATIENT ADMITED INTO ROOM 324 POST OP. A&O. VSS. DENIES PAIN OR NAUSEA. LEFT SHOULDER DRESSING IS CD&I WITH OCCLUSIVE TAPE. ABDUCTOR SLING INPLACE TO LUE WITH ICE PACK. HEAD TO TOE ASSESSMENT COMPLETE. SCD'S TO BLE. ORIENTED TO ROOM. CALL LIGHT IN REACH.
--- NOTE | 2020-11-30 20:00 | NUR ---
PT ASSISTED TO BATHROOM, STEADY GAIT. HAS LEFT ARM IN SLING, BULKY DRSG INTACT TO LEFT SHOULDER. SL TO RIGHT FOREARM FLUSHES WELL. PT PUTS ON BRIEFS AND SHORTS. DENIES PAIN AT THIS TIME.
--- NOTE | 2020-11-30 20:38 | NUR ---
SPOKE WITH PT OFFERING I.S. PT HAS AMBULATED AND PERFORMS DEEP BREATHS, REFUSES I.S. DEVICE
[2020-12-01 00:50] VITALS: BP 126/77; PULSE 69; TEMP 98
--- NOTE | 2020-12-01 01:00 | NUR ---
IV ANTIBIOTIC GIVEN. PT DENIES NEEDS.
[2020-12-01 04:37] VITALS: BP 135/85; PULSE 69; TEMP 98.8
[2020-12-01 07:45] VITALS: BP 133/78; PULSE 69; TEMP 98.5
--- NOTE | 2020-12-01 08:00 | NUR ---
PATIENT IS A&O. VSS. RATES PAIN IN LEFT SHOULDER AT 3/10, GAVE PRN NORCO TAB FOR PAIN PER ORTHO BEFORE DISCHARGE LATER TODAY. CHANGED POST OP SHOULDER DRESSING TO AQUACEL. ABDUCTOR SLING AND ICE PACK INPLACE. PATIENT INDEPENDENT IN ROOM. HEAD TO TOE ASSESSMENT WNL. AM MEDS GIVEN. BREAKFAST TRAY AT BEDSIDE. NO C/O N/V. IV ABX INFUSING VIA PUMP INTO RIGHT FORARM IV. NO OTHER NEEDS. CALL LIGHT IN REACH.
[2020-12-01 08:18] LABS: HEMOGLOBIN 11.5 g/dl (13.5-18.0)
[2020-12-01 08:19] LABS: HEMATOCRIT 33.3 % (42.0-52.0)
--- NOTE | 2020-12-01 10:04 | NUR ---
CARLOS met with the patient and his friend, Richi, to discuss discharge plan. The patient gave CARLOS permission to talk in front of his friend. The patient lives alone in [place]. He reports independence with ADLs and has a cane, walker, and wheelchair available to him, if needed. The patient's PCP is Dr. Ivonne Vela and he receives his medications from [facility]. The patient does not have a DPOA-HC, but he was interested in obtaining a form. CARLOS provided. The patient states that he is still , but working on getting a divorce. He does not have any children. He has listed his sister, Shawanda (ph#[phone]), as his person to contact. Shawanda lives in [place]. CARLOS informed him of how his legal next of kin is still his , since they are not yet. The patient verbalized understanding. He was still not interested in completing a DPOA-HC while here. The patient plans to return home with outpatient PT at [facility] upon discharge. The patient then informed CARLOS that he believes that he will be prescribed a blood thinner upon discharge and wanted to know which one is cheaper. CARLOS informed him how CARLOS would need to collaborate with his attending and RN to see what blood thinner he would need. The patient verbalized understanding. CARLOS then staffed with the patient's RN. The patient is on Xarelto and will likely d/c on that. CARLOS had had a Free 30-Day Trial Offer discount card for Xarelto. CARLOS informed the RN and provided the discount card to the patient. No additional needs at this time. Discharge plan: home with outpatient PT*
[2020-12-01 11:37] VITALS: BP 136/82; PULSE 64; TEMP 99
--- NOTE | 2020-12-01 12:14 | NUR ---
First visit from the staffing director. No needs right now.
[2020-12-01] MEDS ORDERED: NORCO 325 MG-7.1 TAB PO (13:36)
[2020-12-01] MEDS ORDERED: SENOKOT S 50 MG1 TAB PO (13:37)
--- NOTE | 2020-12-01 14:45 | NUR ---
PATIENT DISCHARGING HOME VIA WC TO PERSONAL VEHICLE WITH FRIEND. GAVE DISCHARGE INSTRUCTIONS, E-SCRIPT SENT, AND DISCUSSED F/U APT WITH ORTHO. ANSWERED ALL QUESTIONS/CONCERNS. DC'D IV SITE, COVERED WITH G[employer]ZE [employer] COBAN. PATIENT DRESSED, PERSONAL BELONGINGS PACKED AND PATIENT DISCHARGED.
== END 2020-12-01 14:45 | disposition home or self-care (01) ==
LOC: SDCO 07:22 → SURG 07:22 → INPTSU 07:22 → EDSTATUS 10:15 → SURG 10:15 → INPTSU 14:00 → SURG 14:00 → SDCO 12-01 14:45
PROVIDERS: Orthopaedic Surgery
DX: M19.012 Primary osteoarthritis, left shoulder (principal); M75.112 Incomplete rotator cuff tear or rupture of left shoulder, not specified as traumatic; M11.212 Other chondrocalcinosis, left shoulder; I10 Essential (primary) hypertension; F32.9 Major depressive disorder, single episode, unspecified; F41.9 Anxiety disorder, unspecified; Z20.822 Contact with and (suspected) exposure to COVID-19; Z79.899 Other long term (current) drug therapy
CPT/HCPCS: OP; A4314; A4619; C1713; C1776; J0690; J1100; J1885; J2250; J2405; J2704; J3010; J7120